=== PATIENT | female | born 1935 | race Caucasian/White ===

== ENCOUNTER 2017-06-17 12:58 | Inpatient (IN) | payer MEDICARE, OTHER ==
[2017-06-17] MEDS: ONDANSETRON 4 MG INJ IV ×2 (15:10→18:36)
[2017-06-17] MEDS: morphine 4 MG/ML VIAL IV (15:10)
[2017-06-17] MEDS: SOD CHLORIDE 0.9% 500 ML IV (15:10)
[2017-06-17 15:19] LABS: ADD UMIC YES; UR ASCORBIC ACID NEGATIVE (NEGATIVE); UR BACTERIA FEW /HPF (NONE SEEN); UR BILIRUBIN (Dip) NEGATIVE (NEGATIVE); UR BLOOD (Dip) 2+ mg/dL (NEGATIVE); UR CLARITY CLOUDY (CLEAR); UR COLOR AMBER (YELLOW); UR GLUCOSE (Dip) NEGATIVE (NEGATIVE); UR KETONES (Dip) NEGATIVE (NEGATIVE); UR LEUKOCYTE ESTERASE (Dip) 1+ Leu/ul (NEGATIVE); UR NITRITE (Dip) NEGATIVE (NEGATIVE); UR RBC 60 /HPF (0-5); UR SPECIFIC GRAVITY (Dip) 1.013 (1.003-1.030); UR SQUAMOUS EPITHELIAL CELL FEW /HPF (FEW); UR TOTAL PROTEIN (Dip) 2+ mg/dl (NEGATIVE); UR UROBILINOGEN (Dip) 1+ mg/dL (NEGATIVE); UR WBC > 182 /HPF (0-5)
[2017-06-17 15:53] LABS: ADD MAN DIFF? NO
[2017-06-17 15:58] LABS: BASOPHILS % 0.3 % (0.0-2.0); EOSINOPHILS % 0.1 % (0.0-7.0); HEMATOCRIT 36.4 % (37.0-47.0); HEMOGLOBIN 11.8 g/dl (12.0-16.0); LYMPHOCYTES # 1.5 10^3/ul (0.8-2.9); LYMPHOCYTES % 12.9 % (15.0-51.0); MEAN CORPUSCULAR HEMOGLOBIN 27.8 pg (29.0-33.0); MEAN CORPUSCULAR HGB CONC 32.4 g/dl (32.0-37.0); MEAN CORPUSCULAR VOLUME 85.8 fl (82.0-101.0); MEAN PLATELET VOLUME 10.7 fl (7.4-10.4); MONOCYTE # 0.9 10^3/ul (0.3-0.9); MONOCYTES % 7.9 % (0.0-11.0); NEUTROPHIL # 9.1 10^3/ul (1.6-7.5); NEUTROPHILS % 78.5 % (39.0-77.0); PLATELET COUNT 228 10^3/UL (140-415); RED BLOOD COUNT 4.24 10^6/ul (4.20-5.40)
[2017-06-17 15:58] LABS: WHITE BLOOD COUNT 11.6 10^3/ul (4.8-10.8)
[2017-06-17] MEDS: CEFTRIAXONE 1 GM/50 ML (PMX) 50 ML IVPB (16:19)
[2017-06-17 16:25] LABS: INR 1.64; PROTIME 19.8 Sec (11.9-14.9); PT RATIO 1.5
[2017-06-17 16:26] LABS: PARTIAL THROMBOPLASTIN TIME 31.1 Sec (25.0-35.0)
[2017-06-17] MEDS: morphine 10 MG INJ IV (16:29)
[2017-06-17 16:30] LABS: ALANINE AMINOTRANSFERASE 20 IU/L (13-69); ALBUMIN 4.3 g/dl (3.3-4.9); ALBUMIN/GLOBULIN RATIO 1.26; ALKALINE PHOSPHATASE 89 IU/L (42-121); ANION GAP 18 (8-16); ASPARTATE AMINO TRANSFERASE 17 IU/L (15-46); BILIRUBIN,INDIRECT 1.4 mg/dl (0-1.1); BILIRUBIN,TOTAL 1.4 mg/dl (0.2-1.3); BLOOD UREA NITROGEN 18 mg/dl (7-20); CALCIUM 9.9 mg/dl (8.4-10.2); CARBON DIOXIDE 25 mmol/L (21-31); CHLORIDE 102 mmol/L (97-110); CREATININE 0.61 mg/dl (0.44-1.00); GLUCOSE 106 mg/dl (70-220); LIPASE 80 U/L (23-300); POTASSIUM 3.9 mmol/L (3.5-5.1); SODIUM 141 mmol/L (135-144); TOTAL PROTEIN 7.7 g/dl (6.1-8.1)
[2017-06-17] MEDS: ACETAMINOPHEN 325 MG TAB PO (18:36)
[2017-06-17] MEDS ORDERED: traMADol 50 MG TAB PO (19:00)
[2017-06-17] MEDS ORDERED: NACL 0.9% 3 ML SYG IV (19:00)
[2017-06-17] MEDS: ATENOLOL 25 MG TAB PO (21:17)
[2017-06-17] MEDS: RANITIDINE 150 MG TAB PO (21:17)
[2017-06-17] MEDS: morphine 2 MG INJ IV (21:18)
[2017-06-18] MEDS: morphine 2 MG INJ IV ×3 (00:41→16:25)
[2017-06-18 06:07] LABS: ADD MAN DIFF? NO
[2017-06-18 06:11] LABS: WHITE BLOOD COUNT 10.2 10^3/ul (4.8-10.8)
[2017-06-18 06:11] LABS: BASOPHIL # 0.1 10^3/ul (0.0-0.1); BASOPHILS % 0.5 % (0.0-2.0); EOSINOPHILS % 0.1 % (0.0-7.0); HEMATOCRIT 35.2 % (37.0-47.0); HEMOGLOBIN 11.4 g/dl (12.0-16.0); LYMPHOCYTES # 1.8 10^3/ul (0.8-2.9); LYMPHOCYTES % 17.6 % (15.0-51.0); MEAN CORPUSCULAR HEMOGLOBIN 28.2 pg (29.0-33.0); MEAN CORPUSCULAR HGB CONC 32.4 g/dl (32.0-37.0); MEAN CORPUSCULAR VOLUME 87.1 fl (82.0-101.0); MEAN PLATELET VOLUME 10.8 fl (7.4-10.4); MONOCYTE # 1.2 10^3/ul (0.3-0.9); NEUTROPHIL # 7.1 10^3/ul (1.6-7.5); NEUTROPHILS % 69.6 % (39.0-77.0); PLATELET COUNT 221 10^3/UL (140-415); RED BLOOD COUNT 4.04 10^6/ul (4.20-5.40); RED CELL DISTRIBUTION WIDTH 15.1 % (11.5-14.5)
[2017-06-18 06:39] LABS: ANION GAP 15 (8-16); BLOOD UREA NITROGEN 15 mg/dl (7-20); CALCIUM 9.5 mg/dl (8.4-10.2); CARBON DIOXIDE 28 mmol/L (21-31); CHLORIDE 104 mmol/L (97-110); CREATININE 0.63 mg/dl (0.44-1.00); GLUCOSE 114 mg/dl (70-220); POTASSIUM 4.4 mmol/L (3.5-5.1); SODIUM 143 mmol/L (135-144)
[2017-06-18] MEDS: ATENOLOL 25 MG TAB PO ×2 (08:31→20:17)
[2017-06-18] MEDS: ISOSORBIDE MONONITRATE(SR)30 MG TAB PO (08:31)
[2017-06-18] MEDS: CEFTRIAXONE 1 GM/50 ML (PMX) 50 ML IVPB (08:31)
[2017-06-18] MEDS: ENOXAPARIN 30 MG/0.3 ML SYG SC (08:32)
[2017-06-18] MEDS: RANITIDINE 150 MG TAB PO (20:17)
[2017-06-19 06:20] LABS: ADD MAN DIFF? NO
[2017-06-19 06:28] LABS: BASOPHILS % 0.4 % (0.0-2.0); EOSINOPHILS % 0.3 % (0.0-7.0); HEMATOCRIT 32.3 % (37.0-47.0); HEMOGLOBIN 10.5 g/dl (12.0-16.0); LYMPHOCYTES # 2.1 10^3/ul (0.8-2.9); LYMPHOCYTES % 23.2 % (15.0-51.0); MEAN CORPUSCULAR HEMOGLOBIN 28.4 pg (29.0-33.0); MEAN CORPUSCULAR HGB CONC 32.5 g/dl (32.0-37.0); MEAN CORPUSCULAR VOLUME 87.3 fl (82.0-101.0); MEAN PLATELET VOLUME 10.8 fl (7.4-10.4); MONOCYTE # 1.1 10^3/ul (0.3-0.9); MONOCYTES % 12.4 % (0.0-11.0); NEUTROPHIL # 5.7 10^3/ul (1.6-7.5); NEUTROPHILS % 63.4 % (39.0-77.0); PLATELET COUNT 200 10^3/UL (140-415); RED CELL DISTRIBUTION WIDTH 15.3 % (11.5-14.5)
[2017-06-19 06:58] LABS: ANION GAP 13 (8-16); BLOOD UREA NITROGEN 18 mg/dl (7-20); CALCIUM 9.1 mg/dl (8.4-10.2); CARBON DIOXIDE 30 mmol/L (21-31); CHLORIDE 104 mmol/L (97-110); CREATININE 0.69 mg/dl (0.44-1.00); GLUCOSE 99 mg/dl (70-220); POTASSIUM 4.5 mmol/L (3.5-5.1); SODIUM 142 mmol/L (135-144)
[2017-06-19] MEDS: CEFTRIAXONE 1 GM/50 ML (PMX) 50 ML IVPB (08:35)
[2017-06-19] MEDS: ISOSORBIDE MONONITRATE(SR)30 MG TAB PO (08:36)
[2017-06-19] MEDS: ATENOLOL 25 MG TAB PO ×2 (08:36→21:00)
[2017-06-19] MEDS: ENOXAPARIN 30 MG/0.3 ML SYG SC (08:37)
[2017-06-19] MEDS: morphine 2 MG INJ IV ×2 (09:16→11:42)
[2017-06-19] MEDS: ONDANSETRON 4 MG INJ IV (11:42)
[2017-06-19] MEDS ORDERED: KETOROLAC 30 MG INJ IV ×2 (12:38→12:45)
[2017-06-19] MEDS: KETOROLAC 15 MG INJ IV (12:52)
[2017-06-19] MEDS ORDERED: KETOROLAC 15 MG INJ IV (13:00)
[2017-06-19] MEDS: AMPICILLIN 2 GM/NS (PMX) 100 ML IVPB ×3 (14:56→23:55)
[2017-06-19] MEDS: RANITIDINE 150 MG TAB PO (21:07)
[2017-06-20] MEDS: ACETAMINOPHEN 325 MG TAB PO (03:47)
[2017-06-20] MEDS: AMPICILLIN 2 GM/NS (PMX) 100 ML IVPB ×4 (06:22→23:22)
[2017-06-20] MEDS: ENOXAPARIN 30 MG/0.3 ML SYG SC (08:27)
[2017-06-20] MEDS: ISOSORBIDE MONONITRATE(SR)30 MG TAB PO (08:27)
[2017-06-20] MEDS: ATENOLOL 25 MG TAB PO ×2 (08:30→20:17)
[2017-06-20] MEDS ORDERED: MAGNESIUM HYDROXIDE 30ML CUP PO (16:30)
[2017-06-20] MEDS: MAGNESIUM HYDROXIDE 30ML CUP PO (17:12)
[2017-06-20] MEDS: morphine 2 MG INJ IV (20:14)
[2017-06-20] MEDS: DOCUSATE SODIUM 100 MG CAP PO (20:17)
[2017-06-20] MEDS: RANITIDINE 150 MG TAB PO (20:17)
[2017-06-21] MEDS: AMPICILLIN 2 GM/NS (PMX) 100 ML IVPB ×4 (05:24→23:10)
[2017-06-21] MEDS: ATENOLOL 25 MG TAB PO ×2 (08:17→20:50)
[2017-06-21] MEDS: DOCUSATE SODIUM 100 MG CAP PO ×2 (08:17→20:50)
[2017-06-21] MEDS: ISOSORBIDE MONONITRATE(SR)30 MG TAB PO (08:18)
[2017-06-21] MEDS: ENOXAPARIN 30 MG/0.3 ML SYG SC (08:19)
[2017-06-21] MEDS: morphine 2 MG INJ IV (15:05)
[2017-06-21] MEDS: ACETAMINOPHEN 325 MG TAB PO (17:06)
[2017-06-21] MEDS: RANITIDINE 150 MG TAB PO (20:50)
[2017-06-22] MEDS: AMPICILLIN 2 GM/NS (PMX) 100 ML IVPB ×3 (05:42→17:15)
[2017-06-22 06:21] LABS: ADD MAN DIFF? NO
[2017-06-22 06:43] LABS: WHITE BLOOD COUNT 5.9 10^3/ul (4.8-10.8)
[2017-06-22 06:43] LABS: BASOPHILS % 0.5 % (0.0-2.0); EOSINOPHILS % 0.5 % (0.0-7.0); HEMOGLOBIN 9.4 g/dl (12.0-16.0); LYMPHOCYTES # 1.4 10^3/ul (0.8-2.9); LYMPHOCYTES % 23.9 % (15.0-51.0); MEAN CORPUSCULAR HEMOGLOBIN 28.1 pg (29.0-33.0); MEAN CORPUSCULAR HGB CONC 32.4 g/dl (32.0-37.0); MEAN CORPUSCULAR VOLUME 86.6 fl (82.0-101.0); MONOCYTE # 0.7 10^3/ul (0.3-0.9); MONOCYTES % 12.2 % (0.0-11.0); NEUTROPHIL # 3.7 10^3/ul (1.6-7.5); NEUTROPHILS % 62.4 % (39.0-77.0); PLATELET COUNT 207 10^3/UL (140-415); RED BLOOD COUNT 3.35 10^6/ul (4.20-5.40); RED CELL DISTRIBUTION WIDTH 14.6 % (11.5-14.5)
[2017-06-22 07:22] LABS: ANION GAP 14 (8-16); BLOOD UREA NITROGEN 14 mg/dl (7-20); CALCIUM 9.1 mg/dl (8.4-10.2); CARBON DIOXIDE 27 mmol/L (21-31); CHLORIDE 105 mmol/L (97-110); CREATININE 0.58 mg/dl (0.44-1.00); GLUCOSE 94 mg/dl (70-220); SODIUM 142 mmol/L (135-144)
[2017-06-22] MEDS: DOCUSATE SODIUM 100 MG CAP PO ×2 (07:50→20:12)
[2017-06-22] MEDS: ISOSORBIDE MONONITRATE(SR)30 MG TAB PO (07:51)
[2017-06-22] MEDS: ATENOLOL 25 MG TAB PO ×2 (07:51→20:14)
[2017-06-22] MEDS: ENOXAPARIN 30 MG/0.3 ML SYG SC (07:53)
[2017-06-22] MEDS: BETHANECHOL 10 MG TAB PO ×3 (10:03→20:11)
[2017-06-22] MEDS: ACETAMINOPHEN 325 MG TAB PO (20:11)
[2017-06-22] MEDS: RANITIDINE 150 MG TAB PO (20:12)
[2017-06-23] MEDS: AMPICILLIN 2 GM/NS (PMX) 100 ML IVPB ×3 (00:50→12:55)
[2017-06-23] MEDS: morphine 2 MG INJ IV ×2 (00:51→08:21)
[2017-06-23] MEDS: ATENOLOL 25 MG TAB PO (08:16)
[2017-06-23] MEDS: DOCUSATE SODIUM 100 MG CAP PO (08:16)
[2017-06-23] MEDS: ISOSORBIDE MONONITRATE(SR)30 MG TAB PO (08:16)
[2017-06-23] MEDS: BETHANECHOL 10 MG TAB PO ×2 (08:16→13:07)
[2017-06-23] MEDS: ENOXAPARIN 30 MG/0.3 ML SYG SC (08:21)
== END 2017-06-23 18:20 | disposition home or self-care (01) | DRG 696 ==
LOC: E/R 12:58 → PP2 17:08
DX: R33.9 Retention of urine, unspecified (principal); N39.0 Urinary tract infection, site not specified; N13.30 Unspecified hydronephrosis; N32.89 Other specified disorders of bladder; Z79.02 Long term (current) use of antithrombotics/antiplatelets; Z95.1 Presence of aortocoronary bypass graft; I10 Essential (primary) hypertension; B96.89 Other specified bacterial agents as the cause of diseases classified elsewhere; M25.561 Pain in right knee; M79.651 Pain in right thigh
CPT/HCPCS: 36415; 73562; 74176; 76775; 76856; 80048; 80053; 81001; 83690; 85025; 85610; 85730; 87086; 93005; 93306; 93971; 96374; 96375; 96376; 99285-25; G0378

== ENCOUNTER 2017-07-13 11:13 | Emergency (ER) | payer SELFPAY, OTHER, MEDICARE | END 2017-07-13 14:00 | disposition left against medical advice (07) | LOC: E/R 11:13 | DX: Z53.21 Procedure and treatment not carried out due to patient leaving prior to being seen by health care provider (principal) ==

== ENCOUNTER 2017-08-11 13:21 | Emergency (ER) | payer MEDICARE, OTHER ==
[2017-08-11] MEDS: ONDANSETRON 4 MG INJ IV (14:33)
[2017-08-11] MEDS: morphine 2 MG INJ IV (14:33)
[2017-08-11 14:45] LABS: ADD MAN DIFF? NO
[2017-08-11 14:48] LABS: BASOPHILS % 0.7 % (0.0-2.0); EOSINOPHILS % 0.2 % (0.0-7.0); HEMOGLOBIN 11.3 g/dl (12.0-16.0); LYMPHOCYTES # 1.4 10^3/ul (0.8-2.9); LYMPHOCYTES % 22.9 % (15.0-51.0); MEAN CORPUSCULAR HEMOGLOBIN 27.6 pg (29.0-33.0); MEAN CORPUSCULAR HGB CONC 31.4 g/dl (32.0-37.0); MEAN PLATELET VOLUME 10.6 fl (7.4-10.4); MONOCYTE # 0.7 10^3/ul (0.3-0.9); MONOCYTES % 11.1 % (0.0-11.0); NEUTROPHIL # 3.9 10^3/ul (1.6-7.5); NEUTROPHILS % 64.8 % (39.0-77.0); PLATELET COUNT 218 10^3/UL (140-415); RED BLOOD COUNT 4.09 10^6/ul (4.20-5.40); RED CELL DISTRIBUTION WIDTH 14.8 % (11.5-14.5)
[2017-08-11 15:14] LABS: ALANINE AMINOTRANSFERASE 21 IU/L (13-69); ALBUMIN 4.4 g/dl (3.3-4.9); ALBUMIN/GLOBULIN RATIO 1.07; ALKALINE PHOSPHATASE 95 IU/L (42-121); ANION GAP 17 (8-16); ASPARTATE AMINO TRANSFERASE 40 IU/L (15-46); BILIRUBIN,INDIRECT 0.3 mg/dl (0-1.1); BILIRUBIN,TOTAL 0.3 mg/dl (0.2-1.3); BLOOD UREA NITROGEN 31 mg/dl (7-20); CARBON DIOXIDE 20 mmol/L (21-31); CHLORIDE 109 mmol/L (97-110); CREATININE 0.88 mg/dl (0.44-1.00); GLUCOSE 101 mg/dl (70-220); LIPASE 110 U/L (23-300); POTASSIUM 5.1 mmol/L (3.5-5.1); SODIUM 141 mmol/L (135-144); TOTAL PROTEIN 8.5 g/dl (6.1-8.1)
[2017-08-11 15:15] LABS: ADD UMIC YES; UR ASCORBIC ACID NEGATIVE (NEGATIVE); UR BILIRUBIN (Dip) NEGATIVE (NEGATIVE); UR BLOOD (Dip) 2+ mg/dL (NEGATIVE); UR CLARITY TURBID (CLEAR); UR COLOR YELLOW (YELLOW); UR GLUCOSE (Dip) NEGATIVE (NEGATIVE); UR KETONES (Dip) NEGATIVE (NEGATIVE); UR LEUKOCYTE ESTERASE (Dip) 3+ Leu/ul (NEGATIVE); UR NITRITE (Dip) POSITIVE (NEGATIVE); UR NONSQUAMOUS EPITHELIAL CELL 5 /HPF (NONE SEEN); UR RBC 14 /HPF (0-5); UR TOTAL PROTEIN (Dip) 2+ mg/dl (NEGATIVE); UR UROBILINOGEN (Dip) NEGATIVE (NEGATIVE); UR WBC > 182 /HPF (0-5)
[2017-08-11] MEDS: CEFEPIME 1GM/50 ML (PMX) 50 ML IVPB (16:09)
== END 2017-08-11 17:07 | disposition home or self-care (01) ==
LOC: FTE 13:21
DX: N39.0 Urinary tract infection, site not specified (principal); R31.9 Hematuria, unspecified; I10 Essential (primary) hypertension; Z79.01 Long term (current) use of anticoagulants
CPT/HCPCS: 36415; 74176; 80053; 81001; 83690; 85025; 87086; 96374; 96375; 99285-25

== ENCOUNTER 2018-05-31 00:35 | Emergency (ER) | payer SELFPAY, OTHER, MEDICARE | END 2018-05-31 00:45 | disposition left against medical advice (07) | LOC: E/R 00:35 | DX: Z53.21 Procedure and treatment not carried out due to patient leaving prior to being seen by health care provider (principal) ==